=== PATIENT | female | born 1965 | race Caucasian/White ===

== ENCOUNTER → 2023-08-20 | Day surgery (SDC) | payer MEDICAID ==
[~2023-08-20] VITALS: Ht 154.9 cm; Wt 89.8 kg
[~2023-08-20] MED LIST: CETI10TA11 PO; DEXAMETHASONE 4MG/ML 1ML VIAL ONE; FENTANYL CITRATE/PF 50MCG/ML 2ML VIAL IV PRN; FENTANYL CITRATE/PF 50MCG/ML 2ML VIAL ONE; GLIP10TA10 PO; HYDROMORPHONE HCL/PF 2MG/ML CPJ IV PRN; INDA1.255 PO; LISI40TA13 PO; MEPERIDINE HCL/PF 25MG/ML CPJ IV PRN; METF-416 PO; MIDAZOLAM HCL 2 MG/2 ML VIAL ONE; ONDANSETRON HCL 4MG/2ML INJ IV PRN; ONDANSETRON HCL 4MG/2ML INJ ONE; PIOG15TA6 PO; PROPOFOL 200MG/20ML VIAL IV ONE
[2023-08-20] MEDS: SODIUM CHLORIDE 0.9% 1,000 ML IV SCH (13:30)
== END | disposition home or self-care (01) ==
LOC: OR 11:18
PROVIDERS: ATTEND Ophthalmology
DX: H02.401 Unspecified ptosis of right eyelid (principal); I10 Essential (primary) hypertension; E11.9 Type 2 diabetes mellitus without complications; Z86.2 Personal history of diseases of the blood and blood-forming organs and certain disorders involving the immune mechanism; Z86.73 Personal history of transient ischemic attack (TIA), and cerebral infarction without residual deficits; Z79.84 Long term (current) use of oral hypoglycemic drugs; Z79.899 Other long term (current) drug therapy; Z98.890 Other specified postprocedural states
CPT/HCPCS: 67908; 82962; J3010; J1100; J2250; J2405; J2704